=== PATIENT | female | born 2000 | race Caucasian/White ===

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

== ENCOUNTER 2022-05-21 12:54 | Inpatient (IN) | payer OTHER ==
[~2022-05-21] VITALS: Ht 167.6 cm; Wt 70.5 kg
[~2022-05-21 12:54] MED LIST changes: +ADDE25CA PO; +TIZA10TA; +ZOLO100T PO
[2022-05-21 14:33] LABS: HEMATOCRIT 40.5 % (36.0-47.0); HEMOGLOBIN 13.4 g/dl (12.0-15.5); MEAN CORPUSCULAR HEMOGLOBIN 29.8 pg (27.0-33.0); MEAN CORPUSCULAR HGB CONC 33.1 g/dl (32.0-36.5); PLATELET COUNT, AUTOMATED 241 10^3/uL (150-450); WHITE BLOOD COUNT 5.8 10^3/uL (4.0-10.0)
[2022-05-21 15:03] LABS: ETHYL ALCOHOL (ETHANOL) 0.003 % (0.000-0.010); RSV AMPLIFICATION NEGATIVE (NEGATIVE)
[2022-05-21 15:05] LABS: ACETAMINOPHEN LEVEL < 2.0 UG/ML (10.0-20.0); ALBUMIN 4.4 G/DL (3.2-5.2); ALKALINE PHOSPHATASE 55 U/L (46-116); ALT/SGPT 11 U/L (7.0-40); AST/SGOT 13 U/L (<34); BILIRUBIN,DIRECT 0.1 MG/DL (<0.4); BILIRUBIN,TOTAL 0.5 MG/DL (0.3-1.2); BLOOD UREA NITROGEN 9 MG/DL (9-23); CALCIUM LEVEL 9.2 MG/DL (8.5-10.1); CARBON DIOXIDE LEVEL 25 MMOL/L (20-31); CHLORIDE LEVEL 106 MMOL/L (98-107); CREATININE FOR GFR 0.78 MG/DL (0.55-1.30); GLUCOSE, FASTING 79 MG/DL (60-100); POTASSIUM SERUM 4.2 MMOL/L (3.5-5.1); SALICYLATE LEVEL < 3.0 MG/DL (<30); SODIUM LEVEL 139 MMOL/L (136-145); TOTAL PROTEIN 7.7 G/DL (5.7-8.2)
[2022-05-21 15:07] LABS: THYROID STIMULATING HORMONE 0.424 uIU/ML (0.48-4.17)
[2022-05-21 15:16] LABS: HCG, SERUM QUALITATIVE NEGATIVE (NEGATIVE)
[2022-05-21 15:39] LABS: BARBITURATES URINE NEGATIVE (NEGATIVE); BENZODIAZEPINES URINE NEGATIVE (NEGATIVE); COCAINE METABOLITE URINE NEGATIVE (NEGATIVE); METHADONE URINE NEGATIVE (NEGATIVE); OPIATES URINE NEGATIVE (NEGATIVE); PHENCYCLIDINE URINE NEGATIVE (NEGATIVE)
[2022-05-21 15:43] LABS: AMPHETAMINES LEVEL URINE POSITIVE (NEGATIVE); CANNABINOIDS URINE POSITIVE (NEGATIVE)
[2022-05-21] MEDS ORDERED: NICOTINE 14 MG/24 HR TRANSDERMAL TD ONE (17:00)
[2022-05-21] MEDS ORDERED: VENTAER INH (17:59)
[2022-05-21] MEDS ORDERED: MED REC COMMENT (18:02)
[2022-05-21] MEDS ORDERED: HOME MED LIST COMPLETE! XX SCH (18:05)
[2022-05-21] MEDS ORDERED: ACETAMINOPHEN TAB 650MG DOSE (2X325MG) PO PRN (22:20)
[2022-05-21] MEDS ORDERED: traZODone 50 MG TAB PO PRN (22:20)
[2022-05-21] MEDS ORDERED: MOM 30ML SUSPENSION UDC PO PRN (22:20)
[2022-05-21] MEDS ORDERED: MAALOX 30 ML SUSP *UDC PO PRN (22:20)
[2022-05-21] MEDS ORDERED: ONDANSETRON 4MG ORAL DISINTEGRATING TAB PO STA (23:43)
[2022-05-22 03:00] VITALS: BP 124/58
[2022-05-22] MEDS ORDERED: ADDE20CA3 PO (07:57)
[2022-05-22] MEDS ORDERED: ALBUTEROL 90 MCG/ACT 8GM HFA INHALER INH PRN (11:50)
[2022-05-22] MEDS: AMPHETAMINE/DEXTROAMPHETAMINE 5 MG *ER* CAPSULE (ADDERALL XR) PO SCH (12:33)
[2022-05-22 18:39] VITALS: BP 144/67
[2022-05-22] MEDS: NICOTINE 14 MG/24 HR TRANSDERMAL TD SCH (18:56)
[2022-05-23 06:43] VITALS: BP 118/59
[2022-05-23] MEDS ORDERED: AMPHETAMINE/DEXTROAMPHETAMINE 5 MG *ER* CAPSULE (ADDERALL XR) PO SCH (09:00)
[2022-05-23] MEDS: NICOTINE 14 MG/24 HR TRANSDERMAL TD SCH (10:28)
[2022-05-23] MEDS: AMPHETAMINE/DEXTROAMPHETAMINE 5 MG *ER* CAPSULE (ADDERALL XR) PO SCH (10:28)
[2022-05-23 19:07] VITALS: BP 140/66
[2022-05-24 06:35] VITALS: BP 136/59
[2022-05-24] MEDS: NICOTINE 14 MG/24 HR TRANSDERMAL TD SCH (09:00)
[2022-05-24] MEDS: AMPHETAMINE/DEXTROAMPHETAMINE 5 MG *ER* CAPSULE (ADDERALL XR) PO SCH (10:54)
== END 2022-05-24 13:07 | disposition home or self-care (01) | DRG 881 ==
LOC: M ED 12:54 → M ED INP 22:18 → M PSY 05-22 01:12 → M ED INP 05-22 01:12 → M PSY 05-22 02:42
PROVIDERS: ADMIT Psychiatry & Neurology Psychiatry; ATTEND Psychiatry & Neurology Psychiatry
DX: F32.A Depression, unspecified (principal); R45.851 Suicidal ideations; Z20.822 Contact with and (suspected) exposure to COVID-19; Z62.810 Personal history of physical and sexual abuse in childhood; J45.909 Unspecified asthma, uncomplicated; M54.9 Dorsalgia, unspecified; G43.909 Migraine, unspecified, not intractable, without status migrainosus; F90.9 Attention-deficit hyperactivity disorder, unspecified type; M25.561 Pain in right knee; M25.562 Pain in left knee; F17.210 Nicotine dependence, cigarettes, uncomplicated; G89.29 Other chronic pain; Z81.8 Family history of other mental and behavioral disorders; Z81.1 Family history of alcohol abuse and dependence; Z79.899 Other long term (current) drug therapy; Z91.52 Personal history of nonsuicidal self-harm; Z56.6 Other physical and mental strain related to work

== ENCOUNTER → 2022-07-23 | Outpatient (REF) | payer OTHER ==
[~2022-07-23] MED LIST changes: +ADDE20CA3 PO; +MED REC COMMENT; +VENTAER INH
[2022-07-23 19:05] LABS: GC DNA AMPLIFICATION NEGATIVE (NEGATIVE)
== END ==
LOC: M WUC 16:12
PROVIDERS: ATTEND Nurse Practitioner Family
DX: Z20.2 Contact with and (suspected) exposure to infections with a predominantly sexual mode of transmission (principal)